=== PATIENT | male | born 1965 | race Asian ===

== ENCOUNTER 2018-05-21 18:08 | Emergency (ER) | payer MEDICAID ==
[~2018-05-21] VITALS: Ht 170.2 cm; Wt 90.7 kg
[2018-05-21 18:11] VITALS: Ht 170.2 cm; Wt 90.7 kg
[2018-05-21 19:53] VITALS: BP 132/77
== END 2018-05-21 19:53 | disposition home or self-care (01) ==
LOC: ED 18:08
DX: S10.93XA Contusion of unspecified part of neck, initial encounter (principal); F43.0 Acute stress reaction; Y04.8XXA Assault by other bodily force, initial encounter; Y92.89 Other specified places as the place of occurrence of the external cause; Y99.8 Other external cause status